=== PATIENT | male | born 1950 | race Caucasian/White ===

== ENCOUNTER 2017-12-20 11:42 | Emergency (ER) | payer MEDICARE ==
[~2017-12-20] VITALS: Ht 165.1 cm; Wt 70.3 kg
== END 2017-12-20 14:43 | disposition home or self-care (01) ==
LOC: ER 11:42
DX: S01.01XA Laceration without foreign body of scalp, initial encounter (principal); F17.210 Nicotine dependence, cigarettes, uncomplicated; W19.XXXA Unspecified fall, initial encounter
CPT/HCPCS: 12002; 70450; 99283-25

== ENCOUNTER 2024-07-03 15:09 | Inpatient (IN) | payer OTHER ==
[~2024-07-03] VITALS: Ht 165.1 cm; Wt 81.7 kg
[2024-07-03 15:54] LABS: BASOPHILS ABSOLUTE AUTO 0.01 K/mm3 (0.00-0.23); BASOPHILS PERCENT AUTO 0 % (0-2); EOSINOPHILS ABSOLUTE AUTO 0.03 K/mm3 (0.00-0.68); EOSINOPHILS PERCENT AUTO 0 % (0-6); Hematocrit 37.8 % (37.0-53.0); Hemoglobin 13.3 g/dL (13.5-17.5); IMMATURE GRAN ABSOLUTE AUTO 0.04 K/mm3 (0.00-0.10); IMMATURE GRAN PERCENT AUTO 0 % (0-1); LYMPHOCYTES ABSOLUTE AUTO 0.78 K/mm3 (0.84-5.20); LYMPHOCYTES PERCENT AUTO 7 % (21-46); MONOCYTES ABSOLUTE AUTO 1.05 K/mm3 (0.16-1.47); MONOCYTES PERCENT AUTO 10 % (4-13); Mean Corpuscular HGB 33.3 pg (26.0-34.0); Mean Corpuscular HGB Conc 35.2 g/dL (31.5-36.5); Mean Corpuscular Volume 95 fL (80-100); Mean Platelet Volume 10.6 fL (9.1-12.4); NEUTROPHILS ABSOLUTE AUTO 8.92 K/mm3 (1.96-9.15); NEUTROPHILS PERCENT AUTO 82 % (41-73); Platelet Count 191 K/mm3 (150-400); RDW Coefficient Variation 14.8 % (11.7-14.2); RDW Standard Deviation 51.5 fL (35.1-46.3); White Blood Cell Count 10.83 K/mm3 (4.00-11.30)
[2024-07-03 16:05] LABS: Albumin, Blood 3.5 g/dL (3.4-5.0); Albumin/Globulin Ratio 1.3 (0.8-1.8); Bilirubin, Total 0.7 mg/dL (0.1-1.0); Bun/Creatinine Ratio 23.5 (12.0-20.0); Calcium, Blood 8.5 mg/dL (8.5-10.1); Creatinine, Blood 0.94 mg/dL (0.60-1.20); Globulin, Blood 2.6 g/dL (2.2-4.0); Potassium, Blood 5.2 mmol/L (3.5-5.5); Total Protein, Blood 6.1 g/dL (6.4-8.2)
[2024-07-03] MEDS ORDERED: Ipratropium/Albuterol SulF 2.5-0.5MG/3 ML Amp INH ONE (18:25)
[2024-07-03] MEDS ORDERED: Furosemide 10 MG/ML 4ML Vial IV ONE (18:25)
[2024-07-03] MEDS ORDERED: Ondansetron HCl 2 MG / ML 2ML Vial IV PRN (18:50)
[2024-07-03] MEDS ORDERED: FLU VACC TS2024-25(6MOS UP)/PF 45 MCG/0.5 ML SYRINGE IM ONE (18:50)
[2024-07-03] MEDS ORDERED: Enoxaparin 40 MG/0.4 ML SYR SC SCH (19:00)
[2024-07-03 19:18] LABS: Source, Urine Clean Catch
[2024-07-03 19:22] LABS: Appearance, Urine Hazy (Clear); Bilirubin, Urine Neg (Neg); Blood, Urine Neg (Neg); Color, Urine Yellow (P-Yellow); Glucose Qualitative, Urine 2+ (Neg); Ketones, Urine 1+ (Neg); Leukocyte Esterase, Urine 1+ (Neg); Nitrite, Urine Neg (Neg); Protein, Urine 2+ (Neg); Specific Gravity, Urine 1.025 (1.003-1.022); Urobilinogen, Urine NORM (Normal)
[2024-07-03 19:35] LABS: Bacteria Few /hpf; Granular Casts 0-2 /lpf (0); Red Blood Cells, Urine 0-2 /hpf (0-2); Spermatozoa Few /hpf; Squamous Epithelial Cells Rare /hpf (Few)
[2024-07-03 21:30] VITALS: BP 105/73
[2024-07-04] VITALS (7 sets, daily range): BP systolic 96–111; BP diastolic 76–81
[2024-07-04 04:28] LABS: BASOPHILS ABSOLUTE AUTO 0.02 K/mm3 (0.00-0.23); BASOPHILS PERCENT AUTO 0 % (0-2); EOSINOPHILS ABSOLUTE AUTO 0.03 K/mm3 (0.00-0.68); EOSINOPHILS PERCENT AUTO 0 % (0-6); Hematocrit 34.6 % (37.0-53.0); IMMATURE GRAN ABSOLUTE AUTO 0.03 K/mm3 (0.00-0.10); IMMATURE GRAN PERCENT AUTO 0 % (0-1); LYMPHOCYTES ABSOLUTE AUTO 0.89 K/mm3 (0.84-5.20); LYMPHOCYTES PERCENT AUTO 10 % (21-46); MONOCYTES ABSOLUTE AUTO 1.17 K/mm3 (0.16-1.47); MONOCYTES PERCENT AUTO 13 % (4-13); Mean Corpuscular HGB Conc 34.7 g/dL (31.5-36.5); Mean Corpuscular Volume 95 fL (80-100); Mean Platelet Volume 10.7 fL (9.1-12.4); NEUTROPHILS ABSOLUTE AUTO 7.03 K/mm3 (1.96-9.15); NEUTROPHILS PERCENT AUTO 77 % (41-73); Platelet Count 151 K/mm3 (150-400); RDW Coefficient Variation 14.9 % (11.7-14.2); RDW Standard Deviation 51.8 fL (35.1-46.3); Red Blood Cell Count 3.64 M/mm3 (4.30-5.90); White Blood Cell Count 9.17 K/mm3 (4.00-11.30)
--- NOTE | 2024-07-04 05:01 | NUR ---
pT ADMITTED TO FLOOR FROM ED AT 2124. TELEMETRY ORDERED AND PLACED ON PT. PT WAS AND IS RUNNING AFIB BETWEEN 90-100S. NO HISTORY OF AFIB. MD AWARE. NO NEW ORDERS. PT DENIES CHEST PAIN OR PRESSURE. NO DISCOMFORT. RESTING COMFORTABLY. CALL LIGHT WITHIN REACH, BED IN LOWEST POSITION. Q1H CHECKS PERFORMED.
[2024-07-04 05:02] LABS: Albumin/Globulin Ratio 1.2 (0.8-1.8); Bilirubin, Total 0.8 mg/dL (0.1-1.0); Bun/Creatinine Ratio 22.5 (12.0-20.0); Calcium, Blood 8.2 mg/dL (8.5-10.1); Creatinine, Blood 0.93 mg/dL (0.60-1.20); Globulin, Blood 2.5 g/dL (2.2-4.0); Potassium, Blood 4.9 mmol/L (3.5-5.5); Total Protein, Blood 5.5 g/dL (6.4-8.2)
[2024-07-04] MEDS ORDERED: Furosemide 10 MG/ML 4ML Vial IV SCH (09:00)
[2024-07-04] MEDS ORDERED: Metoprolol Tartrate 25 MG Tab PO SCH (10:00)
[2024-07-04] MEDS ORDERED: Miconazole Nitrate 2% 85 GM PWD TOP SCH (16:55)
[2024-07-04] MEDS ORDERED: Furosemide 10 MG / ML 2ML Vial IV SCH (18:00)
--- NOTE | 2024-07-04 18:59 | NUR ---
SHIFT SUMMARY- PT ALERT, ORIENTED AND MOSTLY INDEPENDENT IN THE ROOM WHEN HIS SPOUSE IS HERE. PT CALLS FOR ASSISTANCE IF NEEDED. PT RECIEVED IV LASIX THIS AM. HE HAS VOIDED FREQUENTLY T/O THE SHIFT. PT HAD A PURPLE AREA ON THE RIGHT GROIN FOLD, NOTED TO BE OOZING OR SWEATING, HAS THE APPEARANCE OF YEAST. CALLED AND RECIEVED AN ORDER FOR MICONOZOLE POWDER. AREA CLEANED AND DRIED POWDER APPLIED AND INTERDRY PLACED. PT STATES IT FEELS A LOT BETTER NOW. PT ON TELE WAS RUNNING AFIB AT THE START OF THE SHIFT HE CONVERTED BACK TO NSR AT ABOUT 11:30. DR IS AWARE. PT STARTED ON METOPROLOL, RECIEVED FIRST DOSE AT 1000. DR AWARE OF THE CONVERSION. CALLED THIS EVENING PT BP WAS 96/81 WHEN THE IV LASIX WAS DUE. ORDER RECIEVED TO HOLD THE EVENING DOSE OF LASIX. DOSE WAS HELD. BEDSIDE REPORT COMPLETED WITH VERENA RN. PT SITTING AT THE EOB EATING HIS DINNER HIS SPOUSE WAS EATING WITH TWO OTHER FAMILY MEMBERS AT THAT TIME WELL. SHE HAS REMAINED AT THE BEDSIDE MOST OF THE DAY. NO CURRENT S&S OF DISTRESS NOTED.
[2024-07-04] MEDS ORDERED: Apixaban 5 MG Tab PO SCH (21:00)
[2024-07-05 04:49] VITALS: BP 107/73
--- NOTE | 2024-07-05 05:00 | NUR ---
TELEMETRY CALLED FOR A 3.8 SECOND PAUSE ON MONITOR. REVERTED BACK TO SINUS ARRHYTHMIA. MD AWARE. NEW ORDER FOR CARDIOLOGY CONSULT.
[2024-07-05 05:48] LABS: Bun/Creatinine Ratio 23.1 (12.0-20.0); Calcium, Blood 8.7 mg/dL (8.5-10.1); Creatinine, Blood 1.08 mg/dL (0.60-1.20); Magnesium, Blood 2.1 mg/dL (1.6-2.4); Potassium, Blood 4.7 mmol/L (3.5-5.5)
--- NOTE | 2024-07-05 06:19 | NUR ---
CARDIOLOGY CONSULT FOR DR. LONNY NAJERA CALLED AT 0620. AWARE OF CONSULT AND STATED WOULD COME SEE PT ONCE ARRIVING TO HOSPITAL TODAY.
[2024-07-05 07:37] VITALS: BP 108/91
--- NOTE | 2024-07-05 07:39 | NUR ---
DR MCLEOD AT THE BEDSIDE- CARDIOLOGY CAME TO SEE THE PT. HE SPOKE TO THE PT BRIEFLY ABOUT HIS ECHO RESULTS AND EF. SPOKE TO DR MCLEOD ABOUT POSSIBLE PARAMETERS FOR THE IV LASIX AND THE PO METOPROLOL. PER THE PARAMETERS ARE WHEN HE'S DIZZY, WHEN THE PT BECOMES SYMPTOMATIC WITH HYPOTENSION.
[2024-07-05] MEDS ORDERED: Lisinopril 5 MG Tab PO SCH (10:00)
[2024-07-05] MEDS ORDERED: Empagliflozin 10 MG TAB PO SCH (10:00)
[2024-07-05 10:27] VITALS: BP 115/71
--- NOTE | 2024-07-05 13:11 | NUR ---
RECIEVED A CALL FROM TELE- PT HAD A 2.7 SECOND PAUSE WITH NOT ACCOMPANYING RYTHM CHANGE. PT WAS IN BED SLEEPING AT THE TIME. SPOUSE WAS AT THE BEDSIDE AND STATED HE COUGHED AT THE TIME OF THE PAUSE. CALLED DR FAGAN, HE IS AWARE. NO NEW ORDERS AT THIS TIME.
--- NOTE | 2024-07-05 15:33 | NUR ---
SHIFT SUMMARY- PT WAS SEEN BY CARDIOLOGY. HE REMAINS ON TELE SINUS ARRHYTHMIA. EF 10-15% PER DR MCLEOD, DR FAGAN CAME AND SPOKE TO THE PT AND HIS SPOUSE ABOUT THE RESULT OF THE ECHO. PT HAS BEEN UP INDEPENDENTLY IN THE ROOM WITH HIS STANDING BY. PT WOULD LIKE TO TAKE A SHOWER BUT THERE IS STILL NO HOT WATER. PT HAS A RASH ON THE LEFT SIDE OF HIS GROIN THAT WAS CLEANE, DRIED AND POWDERED PER EMAR. INTERDRY PLACED TO AID IN HEALING.
[2024-07-05 16:14] VITALS: BP 93/66
[2024-07-05 19:05] VITALS: BP 93/58
[2024-07-05] MEDS ORDERED: Metoprolol Tartrate 25 MG Tab PO SCH (21:00)
[2024-07-05 23:15] VITALS: BP 101/72
[2024-07-06 06:16] LABS: BASOPHILS ABSOLUTE AUTO 0.02 K/mm3 (0.00-0.23); BASOPHILS PERCENT AUTO 0 % (0-2); EOSINOPHILS ABSOLUTE AUTO 0.09 K/mm3 (0.00-0.68); EOSINOPHILS PERCENT AUTO 1 % (0-6); Hematocrit 33.3 % (37.0-53.0); Hemoglobin 11.5 g/dL (13.5-17.5); IMMATURE GRAN ABSOLUTE AUTO 0.04 K/mm3 (0.00-0.10); IMMATURE GRAN PERCENT AUTO 1 % (0-1); LYMPHOCYTES ABSOLUTE AUTO 0.76 K/mm3 (0.84-5.20); LYMPHOCYTES PERCENT AUTO 11 % (21-46); MONOCYTES ABSOLUTE AUTO 0.88 K/mm3 (0.16-1.47); MONOCYTES PERCENT AUTO 13 % (4-13); Mean Corpuscular HGB Conc 34.5 g/dL (31.5-36.5); Mean Corpuscular Volume 95 fL (80-100); Mean Platelet Volume 10.6 fL (9.1-12.4); NEUTROPHILS ABSOLUTE AUTO 5.08 K/mm3 (1.96-9.15); NEUTROPHILS PERCENT AUTO 74 % (41-73); Platelet Count 158 K/mm3 (150-400); RDW Coefficient Variation 15.3 % (11.7-14.2); RDW Standard Deviation 53.1 fL (35.1-46.3); Red Blood Cell Count 3.49 M/mm3 (4.30-5.90); White Blood Cell Count 6.87 K/mm3 (4.00-11.30)
[2024-07-06 06:47] LABS: Bun/Creatinine Ratio 26.7 (12.0-20.0); Calcium, Blood 8.5 mg/dL (8.5-10.1); Creatinine, Blood 1.01 mg/dL (0.60-1.20); Potassium, Blood 4.3 mmol/L (3.5-5.5)
[2024-07-06 07:29] VITALS: BP 116/74
[2024-07-06] MEDS ORDERED: Furosemide 10 MG / ML 2ML Vial IV SCH (09:00)
[2024-07-06] MEDS ORDERED: Spironolactone 50 MG Tab PO SCH (09:00)
[2024-07-06] MEDS ORDERED: Losartan Potassium 25 MG Tab PO SCH (09:00)
[2024-07-06] MEDS ORDERED: Metoprolol Succinate 25 MG TABCR PO SCH (09:00)
[2024-07-06 12:06] VITALS: BP 115/68
[2024-07-06 16:33] VITALS: BP 95/66
--- NOTE | 2024-07-06 18:39 | NUR ---
SHIFT SUMMARY PATIENT ALERT AND INTERACTIVE. PATIENT INDEPENDENT IN THE ROOM. FAMILY AT BEDSIDE MOST OF THE SHIFT. EDUCATION PROVIDED RELATED TO CHF, DIET, FLUID RESTRICTION, SKIN CARE, DAILY WEIGHTS, AND FOLLOWING UP WITH PROVIDERS. PATIENT CONTINUES TO HAVE EDEMA UP TO THIGHS. STATES THAT IT IS GREATLY IMPROVED. POWDER APPLIED TO GROIN RASH ORDERED.
[2024-07-06 19:43] VITALS: BP 100/75
[2024-07-06 23:09] VITALS: BP 101/61
[2024-07-07 03:39] VITALS: BP 95/58
--- NOTE | 2024-07-07 06:19 | NUR ---
SHIFT SUMMARY PATIENT IS ALERT AND ORIENTED. PATIENT HAS HAD NO ACUTE EVENTS THIS SHIFT. VITAL SIGNS REVIEWED. PATIENT HAS NO COMPLAINTS OF PAIN, NAUSEA, SOB OR VOMITTING. PATIENT HAS BEEN RESTING ALL SHIFT WITH NO EVENTS.
[2024-07-07 07:10] LABS: Bun/Creatinine Ratio 24.5 (12.0-20.0); Calcium, Blood 8.7 mg/dL (8.5-10.1); Creatinine, Blood 1.02 mg/dL (0.60-1.20); Potassium, Blood 4.4 mmol/L (3.5-5.5)
[2024-07-07 07:29] VITALS: BP 93/63
[2024-07-07 11:04] VITALS: BP 96/59
--- NOTE | 2024-07-07 12:11 | NUR ---
CARE NOTE CALL PLACED BY THIS RN TO [facility] TO NOTIFY THAT PT IS READY FOR ZIO PATCH PLACEMENT PER EMAR ORDERS.
[2024-07-07] MEDS ORDERED: JARDIANCE10 MG PO (12:17)
[2024-07-07] MEDS ORDERED: ELIQUIS5 M2 PO (12:17)
[2024-07-07] MEDS ORDERED: LOSA25 PO (12:18)
[2024-07-07] MEDS ORDERED: METO25ER PO (12:18)
[2024-07-07] MEDS ORDERED: SPIR25 PO (12:19)
[2024-07-07] MEDS ORDERED: FURO20 PO (12:19)
[2024-07-07] MEDS ORDERED: MICONAZOLE NITR85 GM TOP (12:19)
--- NOTE | 2024-07-07 15:32 | NUR ---
DISCHARGE NOTE PT WAS ALERT AND ORIENTED X 4, HE WAS AMBULATORY IN THE ROOM A SBA AND APPEARED STEADY ON HIS FEET. VSS, SPO2 MAINTAINED >95% VIA RA. PER TELE MONITORING, HR WAS NOTED TO BE SINUS ARRYTHMIA @ 108. HE DENIES FEELINGS OF CHEST PAIN/PRESSURE, SOB OR LIGHTHEADEDNESS/DIZZINESS. HE DENIED FEELINGS OF NAUSEA/VOMITTING. HIS ARMANDO WAS AT BEDSIDE T/O THE SHIFT. THIS RN DISCUSSED DISCHARGE INSTRUCTIONS INCLUDING, HOME MEDICATIONS, FOLLOW UP APPOINTMENTS, DAILY WEIGHTS, HEART HEALTHY DIET. THIS RN REMOVED IV IN R FOREARM. PT LEFT MEDICAL FLOOR AT APPROX. 1530 VIA WHEELCHAIR.
== END 2024-07-07 15:25 | disposition home health service (06) | DRG 292 ==
LOC: ER 15:09 → MEDS 15:10 → ERHOLD 15:10 → MEDS 15:10 → ER 15:10 → MEDS 21:30 → ERHOLD 21:30 → MEDS 07-04 14:12
PROVIDERS: Internal Medicine; Student in an Organized Health Care Education/Training Program; ADMIT Internal Medicine
DX: I50.23 Acute on chronic systolic (congestive) heart failure (principal); E87.1 Hypo-osmolality and hyponatremia; I42.0 Dilated cardiomyopathy; I48.0 Paroxysmal atrial fibrillation; D64.9 Anemia, unspecified; I44.0 Atrioventricular block, first degree; R73.9 Hyperglycemia, unspecified; Z88.0 Allergy status to penicillin; Z92.21 Personal history of antineoplastic chemotherapy; Z85.72 Personal history of non-Hodgkin lymphomas; Z87.891 Personal history of nicotine dependence
CPT/HCPCS: 36415; 71046; 80048; 80053; 81001; 83735; 83880; 83930; 84443; 84484; 85025; 87086; 93005; 93010; 93246; 94640; 94664; 96372; 96374; 96376; 97116; 97162; 97530; 99285-25; A9270; C8929; G0378; J1650; J1940; Q9957